=== PATIENT | male | born 1995 | race Caucasian/White ===

== ENCOUNTER 2022-08-06 12:25 | Emergency (ER) | payer OTHER ==
[~2022-08-06 12:25] MED LIST: AUGMENTIN 875-1 EACH PO
[2022-08-06 12:55] LABS: HEMOGLOBIN 14.9 gm/dl (14.0-17.5); RED BLOOD COUNT 5.04 M/UL (4.20-5.50); WHITE BLOOD COUNT 7.3 K/UL (4.5-11.0)
[2022-08-06 13:25] LABS: BUN/CREATININE RATIO 18 (0-10)
== END 2022-08-06 15:52 | disposition home or self-care (01) ==
LOC: ER1 12:25
PROVIDERS: Emergency Medicine
DX: K76.0 Fatty (change of) liver, not elsewhere classified (principal)
CPT/HCPCS: 80053; 81001; 85025; 99284